=== PATIENT | male | born 1955 | race Caucasian/White ===

== ENCOUNTER 2023-02-10 10:45 | Outpatient (CLI) | payer MEDICARE, SELFPAY ==
--- NOTE | 2023-02-10 11:09 | ECG_ITS ---
Measurements Intervals [place] Rate: 48 P: 15 MS: 180 QRS: -6 QRSD: 120 T: 41 QT: 435 QTc: 392 Interpretive Statements SINUS BRADYCARDIA MODERATE INTRAVENTRICULAR CONDUCTION DELAY [110+ ms QRS DURATION] BORDERLINE ECG NO PREVIOUS ECG AVAILABLE FOR COMPARISON Electronically Signed On 02-10-2023 17:19:35 CDT by Hans Land M.D.
== END 2023-02-10 10:46 | disposition home or self-care (01) ==
LOC: ANHSURGERY 10:56
PROVIDERS: PCP Internal Medicine; Visit Provider Urology
DX: I10 Essential (primary) hypertension (principal); Z01.818 Encounter for other preprocedural examination; I45.9 Conduction disorder, unspecified
CPT/HCPCS: 93005

== ENCOUNTER 2023-02-17 01:38 | Day surgery (SDC) | payer MEDICARE, SELFPAY ==
--- NOTE | 2023-02-09 07:19 | PM.HPGS ---
History of Present Illness History of Present Illness Consent: Risks, benefits, and alternatives have been discussed and questions answered. Patient agrees to proceed with procedure. Chief complaint: bph with nocturia, bladder stones Narrative: Peter Mars is a 67 year old male with recent fiirst office visit for atypical right flank pain several weeks ago. ?A noncontrast CT scan showed a possible indeterminate mass in his right kidney and bilateral ?adrenal masses. ?Follow-up CT scan of the abdomen w/ contrast showed findings consistent with a simple renal cyst and bilateral adrenal adenomas. ? In addition to these upper tract findings there is also a dystrophic calcification in his bladder. ?On cystoscopy as multiple tiny bladder stones consistent with incomplete emptying. ?Additionally though he has an 8 mm stone adherent to the bladder wall which may be suggestive of a of an underlying neoplastic growth. ? I will set for cysto with bladder stone extraction, possible bladder biopsy/TURBT. he is aware the risks including, but not limited to, need for additional procedures, hematuria. Review of Systems Review of Systems: All systems reviewed & are unremarkable except as noted in HPI and below Meds Home Medications and Allergies Allergies Allergy/AdvReac Type Severity Reaction Status Date / Time No Known Drug Allergies Allergy Unknown Verified 08/19/18 11:18 Exam Const: General: no acute distress Resp: Effort & Inspection: normal respiratory effort GI: Inspection: non-distended GI Palp: No abdominal tenderness and No Guarding due to palpation present (GI) Auscultation: normal bowel sounds Assessment and Plan Assessment and plan (1) Bladder stone: Code(s): N21.0 - Calculus in bladder Status: Acute Assessment and Plan: ?Cysto with bladder stone extraction, possible bladder biopsy/TURBT
--- NOTE | 2023-02-09 13:22 | PC.NURSE ---
Report to the Outpatient Waiting Room, entrance under the green pavilion located off [facility], at time __1100 on date _02/17/23 . Planned Procedure Time: __1300 . Time changes happen often and if your time is changed the preop area will call you the afternoon before. - You and your visitor will be asked to self-screen and do not enter if you have any COVID symptoms. - A mask is optional within the hospital at this time. Patients may have clear liquids (water, carbonated beverages, clear teas, apple juice) until 3 hours prior to surgery with a maximum of 20 ounces. - No food from midnight until time of surgery - Infants may have breast milk until 4 hours before surgery, formula 6 hours prior to surgery. - Children will be allowed to drink immediately following surgery. If applicable, please bring a bottle or sippy cup to assist with drinking. Juice, water, soda, and popsicles are readily available. For infants on formula, please bring formula the day of surgery. Pacifiers are allowed. Take the following medications with a SIP of water the morning of surgery: __AMLODIPINE, CARBIDOPA-LEVODOPA,_METOPROLOL,PAROXETINE DO NOT STOP ANY OF YOUR OTHER PRESCRIPTION MEDICATIONS PRIOR TO SURGERY ?EXCEPT THE FOLLOWING Medications to discontinue per physician MELOXICAM PER DR RAMOS Please no make-up, nail chinese, hairspray, perfume, deodorant, or body powder the day of surgery. No jewelry (including any body piercings) or valuables the day of surgery, leave them at home. Please take a shower or bath the night before, or the morning of, surgery with an antibacterial soap. Wear comfortable, loose fitting clothing. Children are encouraged to wear pajamas. - Jewelry must be removed prior to entering the operating room. Rings and piercings that are not removed may be cut off. - The hospital will not accept responsibility for valuables. - Please leave all valuables, including medications, at home the day of surgery. If you are going home after surgery, a licensed public transit bus driver must drive you home. - NO public transportation without another adult if you receive anesthesia. - We recommend that an adult stay with you for 24 hours following discharge. - We also recommend that you do not drive, make important decision, drink alcoholic beverages, or take any drugs that were not prescribed by your health care provider for at least 24 hours after your discharge time. For Pediatric surgeries, we recommend two adults accompany the child home. Follow any additional instructions given to you from your surgeon. If you or anyone in your household have experienced Covid symptoms in the past week, please notify your surgeon or the nurse liaison at the phone number below for possible testing. Telephone instructions given to __SPOUSE BARB and asked if any additional questions and then verbalized understanding. Patient advised to call surgeon office or pre surgery nurse liaison [phone] if any additional questions.
[2023-02-09 13:30] VITALS: BMI 23.7
--- NOTE | 2023-02-16 14:17 | P.PNAN_ITS ---
Anes - Initial Pre Proc Eval Procedure: Operation Date: 02/17/23 12:30 Proposed Procedures p Cystoscopy, Bladder Stones Extraction, Possible Bladder Biopsy, - Scott Carlos MD s Possible Trans Urethral Resection of Bladder Tumor - Scott Carlos MD Date/Time: 02/16/23 14:17 Surgeon: Scott Carlos MD Pre Op Diagnosis: bph with nocturia, bladder stones Patient Data Age: 67 Gender: M Height: 1.73 m Weight: 70.8 kg Allergies Allergy/AdvReac Type Severity Reaction Status Date / Time No Known Allergies Allergy Verified 02/17/23 10:54 Home Medications Medication Instructions Recorded Confirmed Type amlodipine 10 mg tablet 10 mg PO DAILY 02/09/23 02/17/23 History atorvastatin 20 mg tablet 20 mg PO DAILY 02/09/23 02/17/23 History carbidopa 25 mg-levodopa 100 mg 1 tablet PO TID 02/09/23 02/17/23 History tablet lisinopril 40 mg tablet 40 mg PO DAILY 02/09/23 02/17/23 History meloxicam 15 mg tablet 15 mg PO DAILY 02/09/23 02/17/23 History metoprolol succinate 100 mg 100 mg PO DAILY 02/09/23 02/17/23 History tablet,extended release 24 hr pantoprazole 40 mg tablet,delayed 40 mg PO DAILY 02/09/23 02/17/23 History release paroxetine HCl 20 mg tablet 20 mg PO DAILY 02/09/23 02/17/23 History sucralfate 1 gram tablet 1 g PO TID 02/09/23 02/09/23 History tamsulosin 0.4 mg capsule 0.4 mg PO DAILY 02/09/23 02/09/23 History Patient hx anesthesia problems: none Family hx anesthesia problems: none Results Review: All pre-operative results and documents have been reviewed as part of the pre- operative evaluation. [facility] Past Medical History Medical History (Updated 02/16/23 @ 14:18 by Que Juan DO) GERD (gastroesophageal reflux disease) Hyperlipidemia Hypertension BINH (obstructive sleep apnea) doesn't tolerate CPAP Social History Social History Smoking packs per day: 1 Smoking cigarettes per day: 20.0 Years smoked: 50 Smoking pack-years: 50.00 Smoking status: Current every day smoker Tobacco type: cigarettes Living arrangements: with family Spiritual care concerns: No Anes - Eval Final PreProcedure Day of Procedure 02/16/23 14:17 Patient weight: normal Heart: regular rate and rhythm Lungs: clear to auscultation Airway: Mallampati scale class II Neurological: alert and oriented Last oral intake: >/= 8 hours ASA classification: III Emergent: no Anesthetic plan: proceed Anesthesia type and monitoring: general LMA and standard monitoring Results Review: All pre-operative results and documents have been reviewed as part of the pre- operative evaluation. Informed Consent: The patient's anesthetic plan and its attendant risks and benefits were discussed with the patient/family/POA. Questions were solicited and answers provided to the satisfaction of the patient/family/POA.
[2023-02-17] VITALS (8 sets, daily range): BP systolic 125–137; BP diastolic 72–84; PULSE 50–63; RESP 14–20; TEMP 36.6; O2SAT 94–99
[2023-02-17] MEDS: LACTATED RINGERS 1,000 ML 30 ML IV CONT (11:00)
--- NOTE | 2023-02-17 11:32 | WPDHPUPDATE1 ---
History and Physical Update Update Date/Time: 02/17/23 11:32 History and Physical has been reviewed, including an updated exam of the patient. There are NO changes in the patient's condition. Risks, benefits, and alternatives have been discussed and questions answered. Patient agrees to proceed with procedure.
[2023-02-17] MEDS: ceFAZolin 2 GM/D5W 50 ML 2 GM/50 ML BAG IVPB (11:57)
[2023-02-17] MEDS: LIDOCAINE HCL 2% GEL UROJET 10 ML PKG MUCOUS MEM (12:16)
[2023-02-17] MEDS: fentaNYL CITRATE INJ (*CRX) 100 MCG/2 ML VIAL 25 MCG IV PUSH (12:37)
--- NOTE | 2023-02-17 12:38 | WPDHPUPDATE1 ---
History and Physical Update Update Date/Time: 02/17/23 12:38 History and Physical has been reviewed, including an updated exam of the patient. There are NO changes in the patient's condition. Risks, benefits, and alternatives have been discussed and questions answered. Patient agrees to proceed with procedure.
--- NOTE | 2023-02-17 12:40 | W.PM.PROC2 ---
Procedure Note - Detailed Date of Procedure 02/17/23 Pre-op Diagnosis bph with nocturia, bladder stones Post-op Diagnosis Same Procedure Performed Cystoscopy, bladder stone extraction, bladder biopsy Surgeon Scott Carlos MD Anesthesia General Description of Procedure [place] the op suite was prepped draped in routine sterile fashion while in dorsal lithotomy position after the uneventful induction of a general LMA anesthetic. Cystoscopy undertaken with a 21 F rigid cystoscope. He has moderate lateral lobe hyperplasia without significant median lobe. There was no urethral stricture. Inspection of bladder shows about a 1 cm stone adherent to the right posterior lateral bladder wall. There was some hyperemia around the stone. This isn't unusual in that it is truly adherent to the bladder wall. Removed it with a 24 F resectoscope with loop. It indeed seems to be hard stone I do not see obvious neoplasm under the stone. Did obtain a biopsy of the hyperemic tissue around the site of stone adherence. The base and periphery was cauterized. Scopes wires removed he was taken recovery room good condition. Drains Yes Packing No Pathology Yes Complications No immediate complications Condition Stable
== END 2023-02-17 14:20 | disposition home or self-care (01) ==
PROVIDERS: PCP Internal Medicine; Visit Provider Urology
PROC: 0TCB8ZZ Extirpation of Matter from Bladder, Via Natural or Artificial Opening Endoscopic (ICD-10-PCS; CPT 52352; principal; 2023-02-17 12:30)
DX: N21.0 Calculus in bladder (principal); N30.20 Other chronic cystitis without hematuria; N40.1 Benign prostatic hyperplasia with lower urinary tract symptoms; R35.1 Nocturia; I10 Essential (primary) hypertension; E78.5 Hyperlipidemia, unspecified; G47.33 Obstructive sleep apnea (adult) (pediatric); K21.9 Gastro-esophageal reflux disease without esophagitis; F17.210 Nicotine dependence, cigarettes, uncomplicated
CPT/HCPCS: 52204; 82365; 88300; 88305; 93005; J0690; J1100; J2405; J2704; J3010; J7120